=== PATIENT | male | born 1990 ===

== ENCOUNTER 2018-08-23 03:09 | Emergency (ER) | payer OTHER ==
[2018-08-23 03:18] VITALS: BMI 24.5
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
[2018-08-23 03:27] VITALS: TEMP 97.8
[2018-08-23 06:41] VITALS: BP 121/74; PULSE 85; RESP 18; O2SAT 100
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
== END 2018-08-23 06:39 | disposition home or self-care (01) ==
LOC: ED 03:09 → MERGE 03:09 → ED 06:39
DX: S01.01XA Laceration without foreign body of scalp, initial encounter (principal); V13.4XXA Pedal cycle driver injured in collision with car, pick-up truck or van in traffic accident, initial encounter; Y92.410 Unspecified street and highway as the place of occurrence of the external cause; M25.572 Pain in left ankle and joints of left foot; M25.521 Pain in right elbow